=== PATIENT | male | born 1940 | race Caucasian/White ===

== ENCOUNTER → 2018-09-23 | Outpatient (CLI) | payer MEDICARE ==
[2018-09-23 08:25] LABS: URINE WBC 0 /hpf (0-3)
[2018-09-23 08:50] LABS: URINE APPEARANCE CLEAR; URINE BILIRUBIN NEGATIVE (NEGATIVE); URINE BLOOD TRACE (NEGATIVE); URINE COLOR YELLOW; URINE GLUCOSE NEGATIVE (NEGATIVE); URINE KETONE NEGATIVE (NEGATIVE); URINE LEUKOCYTE ESTERASE NEGATIVE (NEGATIVE); URINE NITRATE NEGATIVE (NEGATIVE); URINE PROTEIN(semi-quant) NEGATIVE (NEGATIVE); URINE UROBILINOGEN NORMAL (NORMAL)
[2018-09-23 08:53] LABS: ALBUMIN 4.1 g/dL (3.5-5.0); CALCIUM 9.3 mg/dL (8.4-10.2); POTASSIUM 4.3 mmol/L (3.6-5.0); TOTAL BILIRUBIN 0.8 mg/dL (0.2-1.3); TOTAL PROTEIN 7.6 g/dL (6.3-8.2)
[2018-09-23 08:58] LABS: EOS # 0.2 (0.04-0.40); EOS % 3.6 % (0.0-4.0); HEMATOCRIT 42.4 % (42.0-52.0); HEMOGLOBIN 14.5 g/dL (13.5-18.0); LYMPH# 2.2 (1.50-4.00); MEAN CELL VOLUME 88 fl (78-100); MEAN CORPUSCULAR HEMOGLOBIN 30 pg (27-31); MEAN CORPUSCULAR HGB CONC 34 g/dL (33-37); MEAN PLATELET VOLUME 10.1 fl (7.4-10.4); MONO # 0.8 (0.20-0.80); NEU # 3.4 (1.40-6.50); PLATELET COUNT 194 K/mm3 (130-400); RED BLOOD COUNT 4.82 M/mm3 (4.20-5.60); RED CELL DISTRIBUTION WIDTH 13.7 % (11.5-14.5); WHITE BLOOD COUNT 6.7 K/mm3 (4.8-10.8)
[2018-09-23 09:04] LABS: PROTHROMBIN TIME 10.4 SECONDS (9.0-12.0)
== END ==
LOC: LAB 08:16
PROVIDERS: Orthopaedic Surgery
DX: Z01.812 Encounter for preprocedural laboratory examination (principal)

== ENCOUNTER → 2018-10-01 | Outpatient (CLI) | payer MEDICARE | LOC: RAD 08:53 | DX: Z01.818 Encounter for other preprocedural examination (principal) ==

== ENCOUNTER → 2018-10-07 | Outpatient (CLI) | payer MEDICARE ==
[~2018-10-07] VITALS: Ht 182.9 cm; Wt 95.5 kg
[~2018-10-07] MED LIST: ASPIRIN 32325 MG/TAB PO; ATENOLOL25 MG PO; CRESTOR 10MG10 MG PO; FLAXSEED OIL1 CAP PO; NITROSTAT0.4 M1 SL
[2018-10-07 10:37] VITALS: BP 139/73
== END ==
LOC: AMSURD 09:46
DX: Z01.818 Encounter for other preprocedural examination (principal)

== ENCOUNTER → 2018-10-13 | Outpatient (CLI) | payer MEDICARE ==
[2018-10-07 10:37] VITALS: BP 139/73
== END ==
LOC: PT 08:54 → EDSTATUS 09:00 → PT 09:00
DX: Z01.818 Encounter for other preprocedural examination (principal); M17.11 Unilateral primary osteoarthritis, right knee

== ENCOUNTER 2018-12-03 08:00 | Outpatient (RCR) | payer MEDICARE ==
[2018-10-07 10:37] VITALS: BP 139/73
== END 2018-12-03 08:30 | disposition home or self-care (01) ==
LOC: PT 08:00
DX: Z47.89 Encounter for other orthopedic aftercare (principal)
CPT/HCPCS: G8978-GP; G8979-GP

== ENCOUNTER → 2019-07-15 | Day surgery (SDC) | payer MEDICARE ==
[2018-10-07 10:37] VITALS: BP 139/73
== END ==
LOC: MSO 06:51
DX: H25.12 Age-related nuclear cataract, left eye (principal); I21.9 Acute myocardial infarction, unspecified; E78.00 Pure hypercholesterolemia, unspecified; Z95.5 Presence of coronary angioplasty implant and graft; Z79.82 Long term (current) use of aspirin; Z79.899 Other long term (current) drug therapy; Z88.0 Allergy status to penicillin
CPT/HCPCS: 00142; J0171; J2250; J3010; V2632

== ENCOUNTER → 2019-08-12 | Day surgery (SDC) | payer MEDICARE ==
[2018-10-07 10:37] VITALS: BP 139/73
== END ==
LOC: MSO 09:53
DX: H25.11 Age-related nuclear cataract, right eye (principal); I25.10 Atherosclerotic heart disease of native coronary artery without angina pectoris; I25.2 Old myocardial infarction; E78.00 Pure hypercholesterolemia, unspecified; Z79.899 Other long term (current) drug therapy; Z79.82 Long term (current) use of aspirin; Z88.0 Allergy status to penicillin; Z95.820 Peripheral vascular angioplasty status with implants and grafts; Z90.49 Acquired absence of other specified parts of digestive tract; Z95.5 Presence of coronary angioplasty implant and graft
CPT/HCPCS: 00142; J0171; J2250; J3010; V2632

== ENCOUNTER 2021-04-07 10:23 | Emergency (ER) | payer MEDICARE ==
[2021-04-07] MEDS ORDERED: TENORMIN25 MG PO (10:43)
[2021-04-07] MEDS ORDERED: CENTRUM ADULTS1 EACH PO (10:43)
[2021-04-07 11:01] LABS: BASO # 0.02 (0.02-0.10); EOS # 0.29 (0.04-0.40); EOS % 3.7 % (0.0-4.0); HEMATOCRIT 41.9 % (42.0-52.0); LYMPH# 2.83 (1.50-4.00); MEAN CELL VOLUME 88 fl (78-100); MEAN CORPUSCULAR HEMOGLOBIN 29 pg (27-31); MEAN CORPUSCULAR HGB CONC 33 g/dL (33-37); MEAN PLATELET VOLUME 10.2 fl (7.4-10.4); MONO # 1.01 (0.20-0.80); PLATELET COUNT 171 K/mm3 (130-400); RED BLOOD COUNT 4.79 M/mm3 (4.20-5.60); RED CELL DISTRIBUTION WIDTH 12.8 % (11.5-14.5); WHITE BLOOD COUNT 7.8 K/mm3 (4.8-10.8)
[2021-04-07 11:12] LABS: ALBUMIN 3.9 g/dL (3.4-4.8); POTASSIUM 3.9 mmol/L (3.5-5.1); SODIUM 140 mmol/L (136-145)
[2021-04-07 11:14] LABS: CALCIUM 9.9 mg/dL (8.3-10.5)
[2021-04-07 11:15] LABS: GLUCOSE 84 mg/dL (75-110); TOTAL PROTEIN 7.4 g/dL (6.2-8.1)
[2021-04-07 11:16] LABS: CARBON DIOXIDE 27 mmol/L (23-31)
[2021-04-07 11:17] LABS: TOTAL BILIRUBIN 0.6 mg/dL (0.2-1.2)
[2021-04-07 11:20] LABS: AST-SGOT 31 U/L (5-34)
[2021-04-07 11:21] LABS: ALT/SGPT 40 U/L (0-55)
[2021-04-07 11:28] LABS: TROPONIN-I < 0.03 ng/mL (<0.030)
[2021-04-07 11:36] LABS: D-DIMER 0.54 mg/L FEU (0.15-0.50)
[2021-04-07] MEDS ORDERED: VIBRAMYCIN HYC100 MG PO (13:33)
[2021-04-07 13:41] VITALS: BP 136/72
== END 2021-04-07 13:41 | disposition home or self-care (01) ==
LOC: ED 10:23
PROVIDERS: Nurse Practitioner
DX: R09.1 Pleurisy (principal); S70.362A Insect bite (nonvenomous), left thigh, initial encounter; I25.10 Atherosclerotic heart disease of native coronary artery without angina pectoris; Z95.9 Presence of cardiac and vascular implant and graft, unspecified; Z79.82 Long term (current) use of aspirin; W57.XXXA Bitten or stung by nonvenomous insect and other nonvenomous arthropods, initial encounter
CPT/HCPCS: Q9967

== ENCOUNTER → 2021-05-16 | Outpatient (CLI) | payer MEDICARE ==
[~2021-05-16] MED LIST changes: +CENTRUM ADULTS1 EACH PO; +TENORMIN25 MG PO; +VIBRAMYCIN HYC100 MG PO
[2021-05-16 08:52] LABS: BASO # 0.03 (0.02-0.10); EOS # 0.43 (0.04-0.40); EOS % 5.4 % (0.0-4.0); HEMATOCRIT 41.1 % (42.0-52.0); LYMPH# 2.27 (1.50-4.00); MEAN CELL VOLUME 88 fl (78-100); MEAN CORPUSCULAR HEMOGLOBIN 30 pg (27-31); MEAN CORPUSCULAR HGB CONC 34 g/dL (33-37); MEAN PLATELET VOLUME 9.9 fl (7.4-10.4); MONO # 0.79 (0.20-0.80); PLATELET COUNT 201 K/mm3 (130-400); RED BLOOD COUNT 4.69 M/mm3 (4.20-5.60); RED CELL DISTRIBUTION WIDTH 12.8 % (11.5-14.5); WHITE BLOOD COUNT 7.9 K/mm3 (4.8-10.8)
[2021-05-16 09:04] LABS: ALBUMIN 3.9 g/dL (3.4-4.8); POTASSIUM 4.2 mmol/L (3.5-5.1)
[2021-05-16 09:07] LABS: TOTAL PROTEIN 7.7 g/dL (6.2-8.1)
[2021-05-16 09:09] LABS: TOTAL BILIRUBIN 0.7 mg/dL (0.2-1.2)
[2021-05-18 20:57] LABS: TB LYME DISEASE SEROLOGY Negative (Negative)
[2021-05-19 15:39] LABS: TB E CHAFFEENSIS IgG <1:64 titer (<1:64)
[2021-05-19 15:42] LABS: TB BABESIA MICROTI IgG <1:64 titer (<1:64)
[2021-05-19 15:58] LABS: TB A PHAGOCYTOPHILUM IgG <1:64 titer (<1:64)
== END ==
LOC: LAB 08:18 → RAD 08:18
PROVIDERS: Physician Assistant
DX: J18.9 Pneumonia, unspecified organism (principal); W57.XXXA Bitten or stung by nonvenomous insect and other nonvenomous arthropods, initial encounter

== ENCOUNTER → 2021-05-18 | Outpatient (CLI) | payer MEDICARE | LOC: LAB 09:32 | DX: J18.9 Pneumonia, unspecified organism (principal) ==

== ENCOUNTER 2021-08-29 14:11 | Emergency (ER) | payer MEDICARE ==
[~2021-08-29] VITALS: Ht 182.9 cm; Wt 93.2 kg
[2021-08-29 14:38] LABS: BASO # 0.03 K/mm3 (0.02-0.10); EOS # 0.31 K/mm3 (0.04-0.40); EOS % 4.1 % (0.0-4.0); HEMATOCRIT 41.7 % (42.0-52.0); HEMOGLOBIN 13.9 g/dL (13.5-18.0); LYMPH# 2.52 K/mm3 (1.50-4.00); MEAN CELL VOLUME 90 fl (78-100); MEAN CORPUSCULAR HEMOGLOBIN 30 pg (27-31); MEAN CORPUSCULAR HGB CONC 33 g/dL (33-37); MONO # 0.87 K/mm3 (0.20-0.80); NEU # 3.77 K/mm3 (1.40-6.50); PLATELET COUNT 153 K/mm3 (130-400); RED BLOOD COUNT 4.66 M/mm3 (4.20-5.60); WHITE BLOOD COUNT 7.5 K/mm3 (4.8-10.8)
[2021-08-29 14:50] LABS: ALBUMIN 3.8 g/dL (3.4-4.8); POTASSIUM 4.1 mmol/L (3.5-5.1)
[2021-08-29 14:51] LABS: CALCIUM 9.5 mg/dL (8.3-10.5)
[2021-08-29 14:53] LABS: TOTAL PROTEIN 7.1 g/dL (6.2-8.1)
[2021-08-29 14:54] LABS: TOTAL BILIRUBIN 0.4 mg/dL (0.2-1.2)
[2021-08-29 15:05] LABS: TROPONIN-I 0.14 ng/mL (<0.030)
[2021-08-29 15:11] LABS: PARTIAL THROMBOPLASTIN TIME 24.8 SECONDS (21.0-32.0)
[2021-08-29 15:12] LABS: D-DIMER 0.58 mg/L FEU (0.15-0.50)
[2021-08-30 08:00] VITALS: BP 137/81
== END 2021-08-30 08:37 | disposition short-term general hospital (02) ==
LOC: ED 14:11
PROVIDERS: Nurse Practitioner Family
DX: I25.110 Atherosclerotic heart disease of native coronary artery with unstable angina pectoris (principal); I10 Essential (primary) hypertension; R79.89 Other specified abnormal findings of blood chemistry; E78.00 Pure hypercholesterolemia, unspecified; Z95.5 Presence of coronary angioplasty implant and graft; Z98.890 Other specified postprocedural states; Z79.82 Long term (current) use of aspirin; Z79.899 Other long term (current) drug therapy
CPT/HCPCS: J1644; J7030